=== PATIENT | male | born 1965 | race African-American/Black ===

== ENCOUNTER 2018-12-07 10:48 | Inpatient (IN) | payer OTHER ==
[2018-12-07 11:23] VITALS: BMI 27.6
--- NOTE | 2018-12-07 13:21 | HP ---
COWS - Scale Resting Pulse: 0= [place] 80 or Below Sweatin= Chills/Flushing Restless Observation: 1= Difficult to Sit Still Pupil Size: 0= Normal to Room Light Bone or Joint Aches: 2= Severe Diffuse Aches Runny Nose/ Eye Tearin= Nasal Congestion GI Upset > 30mins: 2= Nausea/Diarrhea Tremor Observation: 0= None Yawning Observation: 0= None Anxiety or Irritability: 1=Feels Anxious/Irritable Goose Flesh Skin: 0=Smooth Skin COWS Score: 8 CIWA Score Nausea/Vomitin Muscle Tremors: None Anxiety: 2 Agitation: 0-Normal Activity Paroxysmal Sweats: 2 Orientation: 0-Oriented Tacttile Disturbances: 0-None Auditory Disturbances: 2-Mild Harshness/Frighten Visual Disturbances: 0-None Headache: 2-Mild CIWA-Ar Total Score: 10 - Admission Criteria OASAS Guidelines: Admission for Medically Managed Detox: Requires at least one of the followin. CIWA greater than 12 2. Seizures within the past 24 hours 3. Delirium tremens within the past 24 hours 4. Hallucinations within the past 24 hours 5. Acute intervention needed for co occurring medical disorder 6. Acute intervention needed for co occurring psychiatric disorder 7. Severe withdrawal that cannot be handled at a lower level of care (continued vomiting, continued diarrhea, abnormal vital signs) requiring intravenous medication and/or fluids 8. Admission [facility] Allergies/Adverse Reactions: Allergies Allergy/AdvReac Type Severity Reaction Status Date / Time No Known Allergies Allergy Verified 12/07/18 11:52 History of Present Illness: pt here requesting detox from etoh and opiate use , reports etoh use since 2 months ago , 2 x 6-pk and 2 nips/day , reports hangover if not drinking, denies seizures, blackouts , tremors , starts drinking in the mornings , detox 2018 @ [facility] , latest use this morning , current symptoms as above . denies driving , reports license suspended. heroin use : 5 bags/day via inhalation x 10 years , OD x 1 " long time ago " , latest use this morning , current symptoms as above cocaine : " a little bit " cannabis : almost daily fentanyl - denies oxycodone - denies methadone - denies tobacco : 1/2 ppd PMHX : denies PSHx : denies PSych : denies Meds : denies SHX : lives w/ SO , unemployed , finances habit through i " running in the streets " . Exam Limitations: Clinical Condition - Ebola screening Have you traveled outside of the country in the last 21 days: No Have you had contact with anyone from an Ebola affected area: No Have you been sick,other than usual withdrawal symptoms: No Do you have a fever: No - Review of Systems Constitutional: See HPI EENT: reports: See HPI (denies vision loss, has reading glasses , upper and lower dentures) Respiratory: reports: No Symptoms reported Cardiac: reports: No Symptoms Reported GI: reports: See HPI : reports: No Symptoms Reported Musculoskeletal: reports: See HPI Integumentary: reports: No Symptoms Reported Neuro: reports: See HPI, Headache Endocrine: reports: No Symptoms Reported Psychiatric: reports: Orientated x3, Anxious Patient History - Patient Surgical History Past Surgical History: No - PPD History Previous Implant?: Yes Documented Results: Negative w/o proof Implanted On Prior R Admission?: No - Smoking Cessation Smoking history: Current every day smoker Aproximately how many cigarettes per day: 10 Hx Chewing Tobacco Use: No Initiated information on smoking cessation: No - Substances Abused Alcohol Route: Oral Frequency: Daily Amount used: 4 16oz Beer, 4 Nips mixed Age of first use: 18 Date of Last Use: 12/07/18 Heroin Route: Inhalation Frequency: Daily Amount used: 5 bags Age of first use: 36 Date of Last Use: 12/07/18 Family Disease History - Family Disease History Family Disease History: Heart Disease: Brother (one , d. heart dz , brain aneurysm ), Other: Father (d. SANG " I don't recall " ), Mother (lupus , shoulder pain ), Brother, Sister (7, A & W ), Son (1, A & W), Daughter (4, A & W ) Admission Physical Exam BHS - Vital Signs Vital Signs: Vital Signs - 24 hr 12/07/18 11:22 Temperature 97.9 F Pulse Rate 66 Respiratory 18 Rate Blood Pressure 135/74 - Physical General Appearance: Yes: Moderate Distress, Irritable, Anxious HEENTM: Yes: EOMI, Hearing grossly Normal, Normocephalic, Normal Voice, Nasal Congestion Respiratory: Yes: Chest Non-Tender, Lungs Clear, Normal Breath Sounds Neck: Yes: No masses,lesions,Nodules, Trachea in good position Cardiology: Yes: Regular Rhythm, Regular Rate, S1, S2 Abdominal: Yes: Non Tender, Soft Back: Yes: Normal Inspection Musculoskeletal: Yes: full range of Motion, Gait Steady Extremities: Yes: Non-Tender Neurological: Yes: Motor Strength 5/5 Integumentary: Yes: Normal Color, Warm - Diagnostic (1) Cocaine abuse Current Visit: Yes Status: Chronic (2) Nicotine dependence Current Visit: Yes Status: Chronic Qualifiers: Nicotine product type: cigarettes (3) Alcohol abuse Current Visit: Yes Status: Acute (4) Cannabis abuse Current Visit: Yes Status: Chronic (5) Opioid dependence Current Visit: Yes Status: Acute Qualifiers: Substance use status: in withdrawal Qualified Code(s): F11.23 - Opioid dependence with withdrawal BHS Breath Alcohol Content Breath Alcohol Content: 0.007 Urine Drug Screen - Results Drug Screen Negative: No Urine Drug Screen Results: THC-Marijuana, SOL-Cocaine, OPI-Opiates, MTD- Methadone, OXY-Oxycodone, FEN-Fentanyl Inpatient Rehab Admission - Rehab Decision to Admit Inpatient rehab admission?: No
[2018-12-07] MEDS ORDERED: MENTHOL/PHENOL 1 EACH UD MM PRN (13:27)
[2018-12-07] MEDS ORDERED: NICOTINE POLACRILEX 2 MG GUM BUC PRN (13:27)
[2018-12-07] MEDS ORDERED: ACETAMINOPHEN 325 MG TABLET (FP) PO PRN ×2 (13:27)
[2018-12-07] MEDS ORDERED: IBUPROFEN 400 MG TABLET (FP) PO PRN (13:27)
[2018-12-07] MEDS ORDERED: METHOCARBAMOL 500 MG TABLET PO PRN (13:27)
[2018-12-07] MEDS ORDERED: MAGNESIUM HYDROX 2400MG/30ML ORAL SUSPENSION 30 ML CUP PO PRN (13:27)
[2018-12-07] MEDS ORDERED: diazePAM 5 MG TABLET PO PRN (13:27)
[2018-12-07] MEDS ORDERED: MAG HYDROX/AL HYDROX/SIMETH 30 ML UNIT-DOSE CUP PO PRN (13:27)
[2018-12-07] MEDS ORDERED: MAGNESIUM CITRATE 300 ML BOTTLE PO PRN (13:27)
[2018-12-07] MEDS: diazePAM 5 MG TABLET PO SCH ×2 (15:58→22:05)
[2018-12-07] MEDS: THIAMINE HCL 100 MG TABLET (FP) PO SCH (22:04)
[2018-12-07] MEDS: MELATONIN 5 MG TABLETS PO PRN (22:04)
[2018-12-07] MEDS ORDERED: METHADONE HCL 10 MG TABLET (FOR DETOX USE ONLY) PO ONE (23:00)
[2018-12-07] MEDS: cloNIDine HCL 0.1 MG TABLET PO PRN (23:37)
[2018-12-08] MEDS ORDERED: hydrOXYzine PAMOATE 50 MG CAPSULE (FP) PO PRN (03:31)
[2018-12-08] MEDS: diazePAM 5 MG TABLET PO SCH (05:04)
[2018-12-08] MEDS: cloNIDine HCL 0.1 MG TABLET PO PRN ×3 (05:04→19:26)
[2018-12-08] MEDS ORDERED: METHADONE HCL 10 MG TABLET (FOR DETOX USE ONLY) PO ONE ×2 (06:58→10:00)
[2018-12-08] MEDS ORDERED: NALOXONE HCL 0.4 MG/ML VIAL IVPUSH PRN (06:58)
[2018-12-08] MEDS ORDERED: chlordiazePOXIDE HCL 25 MG CAPSULE PO PRN (06:58)
--- NOTE | 2018-12-08 07:12 | PN ---
[facility] CIWA - CIWA Score Nausea/Vomitin-Mild Nausea/No Vomiting Muscle Tremors: 1-None Visible, but [place] Anxiety: 6 Agitation: 6 Paroxysmal Sweats: 3 Orientation: 0-Oriented Tacttile Disturbances: 0-None Auditory Disturbances: 0-None Visual Disturbances: 0-None Headache: 0-None Present CIWA-Ar Total Score: 17 BHS COWS - Scale Resting Pulse: 0= [place] 80 or Below Sweatin= Chills/Flushing Restless Observation: 5= Unable to Sit Still Pupil Size: 1= Pupils >than Normal Bone or Joint Aches: 4=Acute Joint/Muscle Pain Runny Nose/ Eye Tearin= Runny Nose/Eyes GI Upset > 30mins: 2= Nausea/Diarrhea Tremor Observation of Outstretched Hands: 1= Tremor [place], Not Seen Yawning Observation: 0= None Anxiety or Irritability: 4=Extreme Anxiety Goose Flesh Skin: 0=Smooth Skin COWS Score: 20 S Progress Note (SOAP) Subjective: c/o worsening withdrawal sx's. requesting to sign out for c/o restlessness, irritability, pacing, nausea, chills. "I cant stay in my room", "the dose is not holding me". denies sob, c.p., fever Objective: 12/08/18 07:10 Vital Signs Temperature 97.6 F 12/08/18 06:11 Pulse Rate 50 L 12/08/18 06:11 Respiratory Rate 18 12/08/18 06:11 Blood Pressure 126/74 12/08/18 06:11 O2 Sat by Pulse Oximetry (%) seen pacing up and down hallway. a/o x3 moderate distress, irritable, HEENT- PERRLA- SLIGHTLY DILATED CV- RRR CHEST- CTAB O2 SAT 99/RA Assessment: 12/08/18 07:12 WITHDRAWAL SX'S Plan: WILL ADJUST TAPER GIVE METHADONE 10 MG NOW TAPER CHANGED TO METH (SEVERE)/JASON CONT TO MONITOR CLINICALLY
[2018-12-08] MEDS ORDERED: TRIMETHOBENZAMIDE HCL 200MG/2ML INJ IM PRN (07:14)
[2018-12-08] MEDS ORDERED: METHADONE HCL 5 MG TABLET (FOR DETOX USE ONLY) PO ONE (10:00)
[2018-12-08] MEDS: chlordiazePOXIDE HCL 25 MG CAPSULE PO SCH ×3 (10:07→22:08)
[2018-12-08] MEDS: PRENATAL VITAMINS W/ FOLIC ACID TABLET (FP) PO SCH (10:07)
[2018-12-08 10:53] LABS: ALBUMIN 3.6 g/dl (3.4-5.0); ALK PHOS 70 U/L (45-117); ANION GAP 4 MMOL/L (8-16); BILIRUBIN,TOTAL 0.5 mg/dL (0.2-1); BLOOD UREA NITROGEN 13 mg/dL (7-18); CALCIUM 8.9 mg/dL (8.5-10.1); CHLORIDE 106 mmol/L (98-107); CO2 28 mmol/L (21-32); CREATININE 1.1 mg/dL (0.55-1.3); GLUCOSE,RANDOM 88 mg/dL (74-106); SGOT/AST 16 U/L (15-37); SGPT/ALT 28 U/L (13-61); SODIUM 138 mmol/L (136-145)
[2018-12-08 11:15] LABS: HEMATOCRIT 40.9 % (35.4-49); HEMOGLOBIN 14.1 GM/dL (11.7-16.9); MCH 30.3 pg (25.7-33.7); MCHC 34.5 g/dl (32.0-35.9); MEAN CELL VOLUME 87.7 fl (80-96); MEAN PLT VOLUME 9.9 fl (7.5-11.1); PLATELET COUNT 244 K/MM3 (134-434); RBC 4.67 M/mm3 (4.00-5.60); RDW 13.7 % (11.9-15.9); WHITE BLOOD COUNT 3.2 K/mm3 (4.0-10.0)
--- NOTE | 2018-12-08 13:17 | CONSULT ---
[facility] Psychiatric Consult - Data Date of interview: 12/08/18 Admission source: [facility] Identifying data: First admission to [facility] for this 53 y/o AA male self- referred for detoxification (opioid, alcohol, cannabis, cocaine). Interviewed on . Patient is single, a father of five, living with common-law spouse , unemployed and supported on Public Assistance. Substance Abuse History: Confirmed by the patient in this interview. Details in current [facility] report : Smoking history: Current every day smoker. Aproximately how many cigarettes per day: 10. Hx Chewing Tobacco Use: No. Initiated information on smoking cessation: No. - Substances Abused. Alcohol. Route : Oral. Frequency: Daily. Amount used: 4 16oz Beer, 4 Nips mixed. Age of first use: 18. Date of Last Use: 12/07/18. Heroin. Route: Inhalation. Frequency: Daily. Amount used: 5 bags. Age of first use: 36. Date of Last Use : 12/07/18 Medical History: Patient endorses good general health. Psychiatric History: Patient denies history of psychiatric hospitalizations or current OPD care. " I used to take seroquel years ago for sleep ". Mr Sanches denies history of suicide attempts. Physical/Sexual Abuse/Trauma History: None reported. Additional Comment: Urine Drug Screen Results: THC-Marijuana, SOL-Cocaine, OPI- Opiates, MTD-Methadone, OXY-Oxycodone, FEN-Fentanyl. Noted. Mental Status Exam - Mental Status Exam Alert and Oriented to: Time, Place, Person Cognitive Function: Good Patient Appearance: Well Groomed Mood: Hopeful Affect: Appropriate, Normal Range Patient Behavior: Fatigued, Appropriate, Cooperative Speech Pattern: Clear Voice Loudness: Normal Thought Process: Intact, Goal Oriented Thought Disorder: Not Present Hallucinations: Denies Suicidal Ideation: Denies Homicidal Ideation: Denies Insight/Judgement: Poor Sleep: Poorly, Difficulty falling asleep Appetite: Good Muscle strength/Tone: Normal Gait/Station: Normal Psychiatric Findings - Problem List ([place] 1, 2,3) (1) Alcohol dependence Current Visit: Yes Status: Chronic (2) Opioid dependence Current Visit: Yes Status: Chronic Qualifiers: Substance use status: in withdrawal Qualified Code(s): F11.23 - Opioid dependence with withdrawal (3) Cannabis abuse Current Visit: Yes Status: Chronic (4) Cocaine abuse Current Visit: Yes Status: Chronic (5) Nicotine dependence Current Visit: Yes Status: Chronic Qualifiers: Nicotine product type: cigarettes (6) Insomnia Current Visit: Yes Status: Chronic - Initial Treatment Plan Initial Treatment Plan: Psychoeducation. Groups. Support. AA/NA meetings. Relapse prevention : discussed with the patient. Mr Sanches requests seroquel at bedtime. Made aware of side effects/benefits of the drug. Ordered : seroquel 100 mg po hs. Consent (verbal) : given. Observation.
[2018-12-08] MEDS ORDERED: diazePAM 5 MG TABLET PO SCH (14:00)
--- NOTE | 2018-12-08 14:41 | PN ---
S CIWA - CIWA Score Nausea/Vomitin-No Nausea/No Vomiting Muscle Tremors: 3 Anxiety: 4-Mod. Anxious/Guarded Agitation: 4-Moderately Restless Paroxysmal Sweats: 2 Orientation: 0-Oriented Tacttile Disturbances: 2-Mild Itch/Numbness/Burn Auditory Disturbances: 1-Very Mild Visual Disturbances: 2-Mild Sensitivity Headache: 0-None Present CIWA-Ar Total Score: 18 BHS COWS - Scale Resting Pulse: 0= [place] 80 or Below Sweatin= Chills/Flushing Restless Observation: 3= Extraneous Movement Pupil Size: 0= Normal to Room Light Bone or Joint Aches: 2= Severe Diffuse Aches Runny Nose/ Eye Tearin= None GI Upset > 30mins: 0= None Tremor Observation of Outstretched Hands: 2= Slight Tremor Visible Yawning Observation: 1= 1-2x During Session Anxiety or Irritability: 4=Extreme Anxiety Goose Flesh Skin: 3=[place] COWS Score: 16 S Progress Note (SOAP) Subjective: Anxious, Agitated, Restless, Tremors, Interrupted Sleep. Objective: PATIENT A & O X 3, OBSERVED AMBULATING ON UNIT. IN NO ACUTE DISTRESS. 12/08/18 14:38 Vital Signs Temperature 98.1 F 12/08/18 13:46 Pulse Rate 50 L 12/08/18 13:46 Respiratory Rate 18 12/08/18 13:46 Blood Pressure 123/75 12/08/18 13:46 O2 Sat by Pulse Oximetry (%) Laboratory Tests 12/08/18 12/08/18 12/08/18 05:40 05:40 05:40 WBC 3.2 L RBC 4.67 Hgb 14.1 Hct 40.9 MCV 87.7 MCH 30.3 MCHC 34.5 RDW 13.7 Plt Count 244 MPV 9.9 Sodium 138 Potassium 4.0 Chloride 106 Carbon Dioxide 28 Anion Gap 4 L BUN 13 Creatinine 1.1 Creat Clearance w eGFR 70.02 Random Glucose 88 Calcium 8.9 Total Bilirubin 0.5 AST 16 ALT 28 Alkaline Phosphatase 70 Total Protein 7.0 Albumin 3.6 RPR Titer Nonreactive HIV 1&2 Antibody Screen HIV P24 Antigen 12/08/18 08:20 WBC RBC Hgb Hct MCV MCH MCHC RDW Plt Count MPV Sodium Potassium Chloride Carbon Dioxide Anion Gap BUN Creatinine Creat Clearance w eGFR Random Glucose Calcium Total Bilirubin AST ALT Alkaline Phosphatase Total Protein Albumin RPR Titer HIV 1&2 Antibody Screen Negative HIV P24 Antigen Negative LABS NOTED. Assessment: 12/08/18 14:39 WITHDRAWAL SYMPTOMS. LEUKOPENIA. Plan: CONTINUE DETOX INCREASE DAILY PO FLUID INTAKE. PRN ROBAXIN PO FOR BODY ACHES / MUSCLE SPASMS.
--- NOTE | 2018-12-08 17:03 | EKG ---
Test Reason : Blood Pressure : / mmHG Vent. Rate : 053 BPM Atrial Rate : 053 BPM P-R Int : 164 ms QRS Dur : 088 ms QT Int : 438 ms P-R-T Axes : 056 052 040 degrees QTc Int : 410 ms SINUS BRADYCARDIA OTHERWISE NORMAL ECG NO PREVIOUS ECGS AVAILABLE Confirmed by BRADLEY MITCHELL MD ([id number]) on 12/08/2018 5:02:53 PM Referred By: RONY GONZALEZ Confirmed By:BRADLEY MITCHELL MD
[2018-12-08 18:55] LABS: URINE APPEARANCE CLEAR; URINE BILIRUBIN NEGATIVE (<2.0 mg/dL); URINE COLOR YELLOW; URINE GLUCOSE (UA) NEGATIVE (NEGATIVE); URINE KETONE NEGATIVE (NEGATIVE); URINE LEUK ESTERASE NEGATIVE (NEGATIVE); URINE NITRITE NEGATIVE (NEGATIVE); URINE PROTEIN NEGATIVE (NEGATIVE)
[2018-12-08] MEDS: QUEtiapine FUMARATE 100 MG TABLET (FP) PO SCH (22:08)
[2018-12-08] MEDS: THIAMINE HCL 100 MG TABLET (FP) PO SCH (22:08)
[2018-12-08] MEDS: MELATONIN 5 MG TABLETS PO PRN (22:08)
[2018-12-09] MEDS ORDERED: diazePAM 5 MG TABLET PO ONE (06:00)
[2018-12-09] MEDS: chlordiazePOXIDE HCL 25 MG CAPSULE PO SCH ×4 (06:40→22:11)
[2018-12-09] MEDS ORDERED: METHADONE HCL 10 MG TABLET (FOR DETOX USE ONLY) PO ONE ×2 (10:00)
[2018-12-09] MEDS: PRENATAL VITAMINS W/ FOLIC ACID TABLET (FP) PO SCH (10:14)
--- NOTE | 2018-12-09 13:57 | PN ---
S CIWA - CIWA Score Nausea/Vomitin-Mild Nausea/No Vomiting Muscle Tremors: 3 Anxiety: 2 Agitation: 3 Paroxysmal Sweats: 1-Minimal Palms Moist Orientation: 2-Disoriented Date<2 days Tacttile Disturbances: 0-None Auditory Disturbances: 0-None Visual Disturbances: 0-None Headache: 1-Very Mild CIWA-Ar Total Score: 13 BHS COWS - Scale Resting Pulse: 0= [place] 80 or Below Sweatin= Chills/Flushing Restless Observation: 0= Sits Still Pupil Size: 0= Normal to Room Light Bone or Joint Aches: 1= Mild Discomfort Runny Nose/ Eye Tearin= Nasal Congestion GI Upset > 30mins: 2= Nausea/Diarrhea Tremor Observation of Outstretched Hands: 2= Slight Tremor Visible Yawning Observation: 2= >3x During Session Anxiety or Irritability: 2=Irritable/Anxious Goose Flesh Skin: 0=Smooth Skin COWS Score: 11 S Progress Note (SOAP) Subjective: doing well with the detox regimen sleep better at night well rested Objective: 12/09/18 14:32 Vital Signs Temperature 98.8 F 12/09/18 09:45 Pulse Rate 68 12/09/18 09:45 Respiratory Rate 18 12/09/18 09:45 Blood Pressure 117/70 12/09/18 09:45 O2 Sat by Pulse Oximetry (%) Laboratory Last Values WBC 3.2 K/mm3 (4.0-10.0) L 12/08/18 05:40 RBC 4.67 M/mm3 (4.00-5.60) 12/08/18 05:40 Hgb 14.1 GM/dL (11.7-16.9) 12/08/18 05:40 Hct 40.9 % (35.4-49) 12/08/18 05:40 MCV 87.7 fl (80-96) 12/08/18 05:40 MCH 30.3 pg (25.7-33.7) 12/08/18 05:40 MCHC 34.5 g/dl (32.0-35.9) 12/08/18 05:40 RDW 13.7 % (11.9-15.9) 12/08/18 05:40 Plt Count 244 K/MM3 (134-434) 12/08/18 05:40 MPV 9.9 fl (7.5-11.1) 12/08/18 05:40 Sodium 138 mmol/L (136-145) 12/08/18 05:40 Potassium 4.0 mmol/L (3.5-5.1) 12/08/18 05:40 Chloride 106 mmol/L (98-107) 12/08/18 05:40 Carbon Dioxide 28 mmol/L (21-32) 12/08/18 05:40 Anion Gap 4 MMOL/L (8-16) L 12/08/18 05:40 BUN 13 mg/dL (7-18) 12/08/18 05:40 Creatinine 1.1 mg/dL (0.55-1.3) 12/08/18 05:40 Creat Clearance w eGFR 70.02 (>60) 12/08/18 05:40 Random Glucose 88 mg/dL (74-106) 12/08/18 05:40 Calcium 8.9 mg/dL (8.5-10.1) 12/08/18 05:40 Total Bilirubin 0.5 mg/dL (0.2-1) 12/08/18 05:40 AST 16 U/L (15-37) 12/08/18 05:40 ALT 28 U/L (13-61) 12/08/18 05:40 Alkaline Phosphatase 70 U/L (45-117) 12/08/18 05:40 Total Protein 7.0 g/dl (6.4-8.2) 12/08/18 05:40 Albumin 3.6 g/dl (3.4-5.0) 12/08/18 05:40 Urine Color Yellow 12/08/18 12:00 Urine Appearance Clear 12/08/18 12:00 Urine pH 8.0 (5.0-8.0) 12/08/18 12:00 Ur Specific [place] 1.020 (1.010-1.035) 12/08/18 12:00 Urine Protein Negative (NEGATIVE) 12/08/18 12:00 Urine Glucose (UA) Negative (NEGATIVE) 12/08/18 12:00 Urine Ketones Negative (NEGATIVE) 12/08/18 12:00 Urine Blood Negative (NEGATIVE) 12/08/18 12:00 Urine Nitrite Negative (NEGATIVE) 12/08/18 12:00 Urine Bilirubin Negative (<2.0 mg/dL) 12/08/18 12:00 Urine Urobilinogen 1.0 mg/dL (0.2-1.0) 12/08/18 12:00 Ur Leukocyte Esterase Negative (NEGATIVE) 12/08/18 12:00 RPR Titer Nonreactive (NONREACTIVE) 12/08/18 05:40 HIV 1&2 Antibody Screen Negative 12/08/18 08:20 HIV P24 Antigen Negative 12/08/18 08:20 lab noted Assessment: 12/09/18 14:32 withdrawal sx Plan: continue detox
[2018-12-09] MEDS: QUEtiapine FUMARATE 100 MG TABLET (FP) PO SCH (22:11)
[2018-12-09] MEDS: MELATONIN 5 MG TABLETS PO PRN (22:11)
[2018-12-09] MEDS: THIAMINE HCL 100 MG TABLET (FP) PO SCH (22:11)
[2018-12-10] MEDS ORDERED: METHADONE HCL 5 MG TABLET (FOR DETOX USE ONLY) PO ONE (06:00)
[2018-12-10] MEDS: chlordiazePOXIDE HCL 25 MG CAPSULE PO SCH (06:09)
--- NOTE | 2018-12-10 08:37 | DS ---
[facility] Detox Discharge Summary Admission Date: 12/07/18 Discharge Date: 12/10/18 - History Present History: Alcohol Dependence, Opioid Dependence - Physical Exam Results Vital Signs: Vital Signs Temperature 98.0 F 12/10/18 06:03 Pulse Rate 52 L 12/10/18 06:03 Respiratory Rate 18 12/10/18 06:03 Blood Pressure 117/65 12/10/18 06:03 O2 Sat by Pulse Oximetry (%) - Treatment Hospital Course: Detox Protocol Followed, Detoxed Safely, Responded well, Discharged Condition Good, Rehab Referral Accepted - Medication Discharge Medications: Ambulatory Orders Naloxone HCl [Narcan] 4 mg NS ASDIR PRN #1 spray 12/09/18 - AMA Did Patient Leave Against Medical Advice: No
[2018-12-10] MEDS ORDERED: METHADONE HCL 10 MG TABLET (FOR DETOX USE ONLY) PO ONE ×2 (10:00)
[2018-12-10] MEDS: PRENATAL VITAMINS W/ FOLIC ACID TABLET (FP) PO SCH (10:05)
[2018-12-10] MEDS: chlordiazePOXIDE HCL 10 MG CAPSULE PO SCH ×3 (10:06→22:16)
[2018-12-10] MEDS ORDERED: chlordiazePOXIDE HCL 10 MG CAPSULE PO PRN (11:00)
--- NOTE | 2018-12-10 12:09 | PN ---
S CIWA - CIWA Score Nausea/Vomitin-No Nausea/No Vomiting Muscle Tremors: 2 Anxiety: 2 Agitation: 2 Paroxysmal Sweats: 1-Minimal Palms Moist Orientation: 1-Uncertain about Date Tacttile Disturbances: 0-None Auditory Disturbances: 0-None Visual Disturbances: 0-None Headache: 0-None Present CIWA-Ar Total Score: 8 BHS COWS - Scale Resting Pulse: 0= [place] 80 or Below Sweatin= Chills/Flushing Restless Observation: 0= Sits Still Pupil Size: 0= Normal to Room Light Bone or Joint Aches: 1= Mild Discomfort Runny Nose/ Eye Tearin= Nasal Congestion GI Upset > 30mins: 0= None Tremor Observation of Outstretched Hands: 1= Tremor [place], Not Seen Yawning Observation: 1= 1-2x During Session Anxiety or Irritability: 1=Feels Anxious/Irritable Goose Flesh Skin: 0=Smooth Skin COWS Score: 6 S Progress Note (SOAP) Subjective: patient preferring to leave tomorrow that feeling better today and sleep better at night Objective: 12/10/18 12:08 Vital Signs Temperature 98.2 F 12/10/18 09:19 Pulse Rate 63 12/10/18 09:19 Respiratory Rate 18 12/10/18 09:19 Blood Pressure 114/68 12/10/18 09:19 O2 Sat by Pulse Oximetry (%) Laboratory Last Values WBC 3.2 K/mm3 (4.0-10.0) L 12/08/18 05:40 RBC 4.67 M/mm3 (4.00-5.60) 12/08/18 05:40 Hgb 14.1 GM/dL (11.7-16.9) 12/08/18 05:40 Hct 40.9 % (35.4-49) 12/08/18 05:40 MCV 87.7 fl (80-96) 12/08/18 05:40 MCH 30.3 pg (25.7-33.7) 12/08/18 05:40 MCHC 34.5 g/dl (32.0-35.9) 12/08/18 05:40 RDW 13.7 % (11.9-15.9) 12/08/18 05:40 Plt Count 244 K/MM3 (134-434) 12/08/18 05:40 MPV 9.9 fl (7.5-11.1) 12/08/18 05:40 Sodium 138 mmol/L (136-145) 12/08/18 05:40 Potassium 4.0 mmol/L (3.5-5.1) 12/08/18 05:40 Chloride 106 mmol/L (98-107) 12/08/18 05:40 Carbon Dioxide 28 mmol/L (21-32) 12/08/18 05:40 Anion Gap 4 MMOL/L (8-16) L 12/08/18 05:40 BUN 13 mg/dL (7-18) 12/08/18 05:40 Creatinine 1.1 mg/dL (0.55-1.3) 12/08/18 05:40 Creat Clearance w eGFR 70.02 (>60) 12/08/18 05:40 Random Glucose 88 mg/dL (74-106) 12/08/18 05:40 Calcium 8.9 mg/dL (8.5-10.1) 12/08/18 05:40 Total Bilirubin 0.5 mg/dL (0.2-1) 12/08/18 05:40 AST 16 U/L (15-37) 12/08/18 05:40 ALT 28 U/L (13-61) 12/08/18 05:40 Alkaline Phosphatase 70 U/L (45-117) 12/08/18 05:40 Total Protein 7.0 g/dl (6.4-8.2) 12/08/18 05:40 Albumin 3.6 g/dl (3.4-5.0) 12/08/18 05:40 Urine Color Yellow 12/08/18 12:00 Urine Appearance Clear 12/08/18 12:00 Urine pH 8.0 (5.0-8.0) 12/08/18 12:00 Ur Specific [place] 1.020 (1.010-1.035) 12/08/18 12:00 Urine Protein Negative (NEGATIVE) 12/08/18 12:00 Urine Glucose (UA) Negative (NEGATIVE) 12/08/18 12:00 Urine Ketones Negative (NEGATIVE) 12/08/18 12:00 Urine Blood Negative (NEGATIVE) 12/08/18 12:00 Urine Nitrite Negative (NEGATIVE) 12/08/18 12:00 Urine Bilirubin Negative (<2.0 mg/dL) 12/08/18 12:00 Urine Urobilinogen 1.0 mg/dL (0.2-1.0) 12/08/18 12:00 Ur Leukocyte Esterase Negative (NEGATIVE) 12/08/18 12:00 RPR Titer Nonreactive (NONREACTIVE) 12/08/18 05:40 HIV 1&2 Antibody Screen Negative 12/08/18 08:20 HIV P24 Antigen Negative 12/08/18 08:20 lab noted Assessment: 12/10/18 12:09 mild withdrawal sx Plan: continue detox
[2018-12-10] MEDS: QUEtiapine FUMARATE 100 MG TABLET (FP) PO SCH (22:16)
[2018-12-10] MEDS: THIAMINE HCL 100 MG TABLET (FP) PO SCH (22:16)
[2018-12-11] MEDS: chlordiazePOXIDE HCL 10 MG CAPSULE PO SCH (05:35)
[2018-12-11] MEDS ORDERED: METHADONE HCL 5 MG TABLET (FOR DETOX USE ONLY) PO ONE (06:00)
[2018-12-11 06:03] VITALS: BP 122/76; PULSE 57; TEMP 97.6
[2018-12-11] MEDS ORDERED: METHADONE HCL 10 MG TABLET (FOR DETOX USE ONLY) PO ONE (10:00)
[2018-12-11] MEDS ORDERED: chlordiazePOXIDE HCL 10 MG CAPSULE PO SCH (11:00)
--- NOTE | 2018-12-11 15:41 | DS ---
[facility] Detox Discharge Summary Admission Date: 12/07/18 Discharge Date: 12/11/18 - History Present History: Alcohol Dependence, Opioid Dependence Additional Comments: 53 years old male admitted on 12/07/18 for alcohol and opiate withdrawal stabilization completed detox regimen [facility] - Physical Exam Results Vital Signs: Vital Signs Temperature 97.6 F 12/11/18 06:03 Pulse Rate 57 L 12/11/18 06:03 Respiratory Rate 18 12/11/18 06:03 Blood Pressure 122/76 12/11/18 06:03 O2 Sat by Pulse Oximetry (%) Pertinent Admission Physical Exam Findings: alcohol and opiate withdrawal sx Laboratory Last Values WBC 3.2 K/mm3 (4.0-10.0) L 12/08/18 05:40 RBC 4.67 M/mm3 (4.00-5.60) 12/08/18 05:40 Hgb 14.1 GM/dL (11.7-16.9) 12/08/18 05:40 Hct 40.9 % (35.4-49) 12/08/18 05:40 MCV 87.7 fl (80-96) 12/08/18 05:40 MCH 30.3 pg (25.7-33.7) 12/08/18 05:40 MCHC 34.5 g/dl (32.0-35.9) 12/08/18 05:40 RDW 13.7 % (11.9-15.9) 12/08/18 05:40 Plt Count 244 K/MM3 (134-434) 12/08/18 05:40 MPV 9.9 fl (7.5-11.1) 12/08/18 05:40 Sodium 138 mmol/L (136-145) 12/08/18 05:40 Potassium 4.0 mmol/L (3.5-5.1) 12/08/18 05:40 Chloride 106 mmol/L (98-107) 12/08/18 05:40 Carbon Dioxide 28 mmol/L (21-32) 12/08/18 05:40 Anion Gap 4 MMOL/L (8-16) L 12/08/18 05:40 BUN 13 mg/dL (7-18) 12/08/18 05:40 Creatinine 1.1 mg/dL (0.55-1.3) 12/08/18 05:40 Creat Clearance w eGFR 70.02 (>60) 12/08/18 05:40 Random Glucose 88 mg/dL (74-106) 12/08/18 05:40 Calcium 8.9 mg/dL (8.5-10.1) 12/08/18 05:40 Total Bilirubin 0.5 mg/dL (0.2-1) 12/08/18 05:40 AST 16 U/L (15-37) 12/08/18 05:40 ALT 28 U/L (13-61) 12/08/18 05:40 Alkaline Phosphatase 70 U/L (45-117) 12/08/18 05:40 Total Protein 7.0 g/dl (6.4-8.2) 12/08/18 05:40 Albumin 3.6 g/dl (3.4-5.0) 12/08/18 05:40 Urine Color Yellow 12/08/18 12:00 Urine Appearance Clear 12/08/18 12:00 Urine pH 8.0 (5.0-8.0) 12/08/18 12:00 Ur Specific [place] 1.020 (1.010-1.035) 12/08/18 12:00 Urine Protein Negative (NEGATIVE) 12/08/18 12:00 Urine Glucose (UA) Negative (NEGATIVE) 12/08/18 12:00 Urine Ketones Negative (NEGATIVE) 12/08/18 12:00 Urine Blood Negative (NEGATIVE) 12/08/18 12:00 Urine Nitrite Negative (NEGATIVE) 12/08/18 12:00 Urine Bilirubin Negative (<2.0 mg/dL) 12/08/18 12:00 Urine Urobilinogen 1.0 mg/dL (0.2-1.0) 12/08/18 12:00 Ur Leukocyte Esterase Negative (NEGATIVE) 12/08/18 12:00 RPR Titer Nonreactive (NONREACTIVE) 12/08/18 05:40 HIV 1&2 Antibody Screen Negative 12/08/18 08:20 HIV P24 Antigen Negative 12/08/18 08:20 lab noted - Treatment Hospital Course: Detox Protocol Followed, Detoxed Safely, Responded well, Discharged Condition Good, Rehab Referral Accepted Patient has Accepted a [facility] Referral [facility] - Medication Discharge Medications: Ambulatory Orders Naloxone HCl [Narcan] 4 mg NS ASDIR PRN #1 spray 12/09/18 - Diagnosis (1) Alcohol dependence Status: Acute Qualifiers: Substance use status: uncomplicated Qualified Code(s): F10.20 - Alcohol dependence, uncomplicated (2) Opioid dependence Status: Acute Qualifiers: Substance use status: uncomplicated Qualified Code(s): F11.20 - Opioid dependence, uncomplicated - AMA Did Patient Leave Against Medical Advice: No
[2018-12-12] MEDS ORDERED: METHADONE HCL 5 MG TABLET (FOR DETOX USE ONLY) PO ONE (06:00)
== END 2018-12-11 08:32 | disposition home or self-care (01) | DRG 773 ==
LOC: YASAS 10:48 → Y3N 14:03
PROVIDERS: ADMIT Surgery; ATTEND Surgery
PROC: HZ2ZZZZ Detoxification Services for Substance Abuse Treatment (ICD-10-PCS; principal; 2018-12-07)
DX: F11.23 Opioid dependence with withdrawal (principal); F10.230 Alcohol dependence with withdrawal, uncomplicated; F14.10 Cocaine abuse, uncomplicated; F12.10 Cannabis abuse, uncomplicated; F17.210 Nicotine dependence, cigarettes, uncomplicated; D72.819 Decreased white blood cell count, unspecified; G47.00 Insomnia, unspecified
CPT/HCPCS: 36415; 80053; 81003; 85027; 86593; 87389; 93005; 93010; J0735

== ENCOUNTER 2021-11-30 13:39 | Inpatient (IN) | payer OTHER ==
[2021-11-30] MEDS ORDERED: LOPERAMIDE HCL 2 MG CAPSULE PO PRN (14:32)
[2021-11-30] MEDS ORDERED: MAGNESIUM CITRATE 300 ML BOTTLE PO PRN (14:32)
[2021-11-30] MEDS ORDERED: MAG HYDROX/AL HYDROX/SIMETH 30 ML UNIT-DOSE CUP PO PRN (14:32)
[2021-11-30] MEDS ORDERED: NICOTINE 10 MG CARTRIDGE (INHALER) IH PRN (14:32)
[2021-11-30] MEDS ORDERED: ONDANSETRON *ODT* 4 MG TABLET SL PRN (14:32)
[2021-11-30] MEDS ORDERED: cloNIDine HCL 0.1 MG TABLET PO PRN (14:32)
[2021-11-30] MEDS ORDERED: MAGNESIUM HYDROX 2400MG/30ML ORAL SUSPENSION 30 ML CUP PO PRN (14:32)
[2021-11-30] MEDS ORDERED: MENTHOL/PHENOL 1 EACH UD MM PRN (14:32)
[2021-11-30] MEDS ORDERED: methaDONE HCL 10 MG TABLET (FOR DETOX USE ONLY) PO ONE (14:32)
[2021-11-30] MEDS ORDERED: chlordiazePOXIDE HCL 25 MG CAPSULE PO PRN (14:32)
[2021-11-30] MEDS ORDERED: BISMUTH SUBSALICYLATE 524 MG/30 ML PO PRN (14:32)
[2021-11-30] MEDS ORDERED: ACETAMINOPHEN 325 MG TABLET (FP) PO PRN ×2 (14:32)
[2021-11-30] MEDS ORDERED: METHOCARBAMOL 500 MG TABLET PO PRN (14:32)
[2021-11-30 15:49] VITALS: BMI 33.1
[2021-11-30] MEDS ORDERED: NALOXONE (NARCAN) HCL 4 MG/0.1 ML SPRAY NS PRN (16:22)
[2021-11-30] MEDS: hydrOXYzine PAMOATE 25 MG CAPSULE (FP) PO SCH ×2 (17:47→22:50)
[2021-11-30] MEDS: chlordiazePOXIDE HCL 25 MG CAPSULE PO SCH ×2 (17:48→22:50)
[2021-11-30] MEDS: PRENATAL VITAMINS W/ FOLIC ACID TABLET (FP) PO SCH (17:49)
[2021-11-30] MEDS: NICOTINE 14 MG/24 HOURS TOPICAL PATCH TD SCH (17:49)
[2021-11-30] MEDS: MELATONIN 5 MG TABLETS PO SCH (22:49)
[2021-11-30] MEDS: THIAMINE HCL 100 MG TABLET (FP) PO SCH (22:50)
[2021-12-01] MEDS: hydrOXYzine PAMOATE 25 MG CAPSULE (FP) PO SCH ×5 (06:01→22:24)
[2021-12-01] MEDS: chlordiazePOXIDE HCL 25 MG CAPSULE PO SCH ×4 (06:01→22:24)
[2021-12-01] MEDS ORDERED: methaDONE HCL 10 MG TABLET (FOR DETOX USE ONLY) ONE (08:55)
[2021-12-01] MEDS: PRENATAL VITAMINS W/ FOLIC ACID TABLET (FP) PO SCH (10:36)
[2021-12-01] MEDS: NICOTINE 14 MG/24 HOURS TOPICAL PATCH TD SCH (10:37)
[2021-12-01 11:38] LABS: HEMATOCRIT 39.2 % (35.4-49); HEMOGLOBIN 13.3 GM/dL (11.7-16.9); MEAN CELL VOLUME 88.3 fl (80-96); PLATELET COUNT 174 10^3/uL (134-434); RBC 4.44 M/mm3 (4.00-5.60); RDW 13.4 % (11.9-15.9); WHITE BLOOD COUNT 3.8 K/mm3 (4.0-10.0)
[2021-12-01 11:54] LABS: BLOOD UREA NITROGEN 13.1 mg/dL (7-18); CALCIUM 8.8 mg/dL (8.5-10.1)
[2021-12-01 11:55] LABS: ALBUMIN 3.3 g/dl (3.4-5.0)
[2021-12-01 11:58] LABS: CREATININE 0.8 mg/dL (0.55-1.3)
[2021-12-01 12:00] LABS: BILIRUBIN,TOTAL 0.7 mg/dL (0.2-1); TOT PROT 5.9 g/dl (6.4-8.2)
[2021-12-01] MEDS: IBUPROFEN 400 MG TABLET (FP) PO PRN (18:28)
[2021-12-01] MEDS: THIAMINE HCL 100 MG TABLET (FP) PO SCH (22:24)
[2021-12-01] MEDS: MELATONIN 5 MG TABLETS PO SCH (22:24)
[2021-12-02] MEDS: chlordiazePOXIDE HCL 25 MG CAPSULE PO SCH ×4 (06:16→22:30)
[2021-12-02] MEDS: hydrOXYzine PAMOATE 25 MG CAPSULE (FP) PO SCH ×5 (06:17→21:42)
[2021-12-02] MEDS ORDERED: methaDONE HCL 10 MG TABLET (FOR DETOX USE ONLY) PO ONE (10:00)
[2021-12-02] MEDS: PRENATAL VITAMINS W/ FOLIC ACID TABLET (FP) PO SCH (10:28)
[2021-12-02] MEDS: NICOTINE 14 MG/24 HOURS TOPICAL PATCH TD SCH (10:29)
[2021-12-02 14:08] LABS: SARS-CoV-2 NAA Not Detected (Not Detected)
[2021-12-02] MEDS: IBUPROFEN 400 MG TABLET (FP) PO PRN (17:52)
[2021-12-02] MEDS: MELATONIN 5 MG TABLETS PO SCH (21:41)
[2021-12-02] MEDS: THIAMINE HCL 100 MG TABLET (FP) PO SCH (21:42)
[2021-12-03] MEDS: chlordiazePOXIDE HCL 10 MG CAPSULE PO PRN ×2 (00:29→08:24)
[2021-12-03] MEDS: IBUPROFEN 400 MG TABLET (FP) PO PRN (03:56)
[2021-12-03] MEDS ORDERED: chlordiazePOXIDE HCL 10 MG CAPSULE PO SCH (05:00)
[2021-12-03] MEDS: hydrOXYzine PAMOATE 25 MG CAPSULE (FP) PO SCH (05:22)
[2021-12-03 06:43] VITALS: PULSE 63
[2021-12-03 08:59] VITALS: BP 130/83; TEMP 97.8
[2021-12-04] MEDS ORDERED: chlordiazePOXIDE HCL 10 MG CAPSULE PO SCH (05:00)
[2021-12-04] MEDS ORDERED: methaDONE HCL 10 MG TABLET (FOR DETOX USE ONLY) PO ONE (10:00)
[2021-12-05] MEDS ORDERED: chlordiazePOXIDE HCL 10 MG CAPSULE PO ONE (05:00)
== END 2021-12-03 10:06 | disposition left against medical advice (07) | DRG 770 ==
LOC: YASAS 13:39 → Y3N 16:33
PROVIDERS: ADMIT Allergy & Immunology; ATTEND Allergy & Immunology
PROC: HZ2ZZZZ Detoxification Services for Substance Abuse Treatment (ICD-10-PCS; principal; 2021-11-30)
DX: F10.230 Alcohol dependence with withdrawal, uncomplicated (principal); F11.20 Opioid dependence, uncomplicated; F12.20 Cannabis dependence, uncomplicated; F17.210 Nicotine dependence, cigarettes, uncomplicated; M19.011 Primary osteoarthritis, right shoulder; M19.012 Primary osteoarthritis, left shoulder
CPT/HCPCS: 36415; 80053; 85027; 86593; 86780; 87811; 93005; 93010; C9803; U0003; U0005